=== PATIENT | male | born 2000 | race African-American/Black ===

== ENCOUNTER 2021-07-27 00:05 | Observation (INO) ==
[2021-07-27] MEDS ORDERED: VANCOMYCIN INJ 1,000 MG in SODIUM CHLORIDE 0.9% 250 ML IV STA (05:12)
[2021-07-27 05:58] LABS: Basophils # 0.1 10*3/uL (0.0-0.2); Basophils % 0.6 % (0.0-0.8); Eosinophils # 0.1 10*3/uL (0.0-0.87); Eosinophils % 0.3 % (0.00-10.9); Hematocrit 43.6 VOL% (42.0-52.0); Hemoglobin 15.5 GM/DL (14.0-18.0); Immature Granulocytes % 0.9 %; Immature Granulocytes Absolute 0.19 #; Lymphocytes # 1.1 10*3/uL (1.4-4.0); Lymphocytes % 5.3 % (21.2-54.2); Mean Corpuscular HGB Conc 35.6 GM/DL (32-36); Mean Corpuscular Volume 85.7 FL (87-102); Mean Platelet Volume 9.2 FL (9.6-12.0); Monocytes # 2.3 10*3/uL (0.11-0.8); Monocytes % 10.8 % (1.7-12.7); Neutrophils % 82.1 % (38.7-73.9); Platelet Count 449 T/CUMM (130-400); Red Blood Count 5.09 MC/CUMM (3.8-5.5); Red Cell Distribution Width 13.2 % (9.3-17.3)
[2021-07-27] MEDS ORDERED: ONDANSETRON 4 MG/2 ML VIAL IV PRN ×2 (06:04→11:09)
[2021-07-27 06:20] LABS: Band Neutrophils 1 % (0-10); Lymphocytes 4 % (20-55); Platelet Estimate Adequate; Total Cells Counted 100
[2021-07-27 06:27] LABS: Albumin 3.4 G/DL (3.4-5.0); Bilirubin,Total 1.2 MG/DL (0.20-1.00); Calcium 10.1 MG/DL (8.5-10.1); Osmolality,Calculated 267.2 MOS/KG (273-304); Potassium 3.1 MMOL/L (3.5-5.1); Total Protein 8.8 G/DL (6.4-8.2)
[2021-07-27] MEDS ORDERED: HYDROmorphone 1 MG/1 ML SYRINGE ONE (09:21)
[2021-07-27] MEDS: HYDROmorphone 1 MG/1 ML SYRINGE IV PRN ×3 (09:28→12:40)
[2021-07-27] MEDS: DEXTROSE 5% NACL 0.45% 1,000 ML IV SCH ×2 (09:50→13:49)
[2021-07-27] MEDS: PIPERACILLIN/TAZOBACTAM 3,375 MG in SODIUM CHLORIDE 0.9% 100 ML IV SCH ×2 (09:50→15:58)
[2021-07-27] MEDS: PANTOPRAZOLE 40 MG VIAL IV SCH (09:50)
[2021-07-27] MEDS ORDERED: MIDAZOLAM 2 MG/2 ML VIAL ONE (10:54)
[2021-07-27] MEDS ORDERED: fentaNYL 100 MCG/2 ML VIAL ONE ×2 (10:54→11:37)
[2021-07-27] MEDS ORDERED: propofoL 200 MG/20 ML VIAL IV ONE (10:54)
[2021-07-27] MEDS ORDERED: LIDOCAINE 2% 5 ML VIAL ONE (10:54)
[2021-07-27] MEDS ORDERED: LIDOCAINE 1%/EPI INJ 20 ML VIAL ONE (11:01)
[2021-07-27] MEDS ORDERED: BUPIVACAINE MPF 0.25% 10 ML VIAL ONE (11:01)
[2021-07-27] MEDS ORDERED: HYDROmorphone 1 MG/1 ML SYRINGE IV PRN (11:09)
[2021-07-27] MEDS ORDERED: PROMETHAZINE INJ 25 MG in SODIUM CHLORIDE 0.9% 50 ML IV PRN (11:09)
[2021-07-27] MEDS ORDERED: diphenhydrAMINE 50 MG/1 ML VIAL IV PRN (11:09)
[2021-07-27] MEDS ORDERED: SEVOFLURANE 1 UNIT/15 MINUTE INH ONE (11:48)
[2021-07-27] MEDS ORDERED: ONDANSETRON 4 MG/2 ML VIAL ONE (11:48)
[2021-07-27] MEDS: MEPERIDINE 25 MG/1 ML VIAL IV PRN ×2 (12:15→12:25)
[2021-07-27] MEDS ORDERED: PROMETHAZINE 25 MG/1 ML VIAL ONE (12:18)
[2021-07-27] MEDS ORDERED: VANCOMYCIN INJ 2,000 MG in SODIUM CHLORIDE 0.9% 500 ML IV SCH (14:00)
[2021-07-28] MEDS: PIPERACILLIN/TAZOBACTAM 3,375 MG in SODIUM CHLORIDE 0.9% 100 ML IV SCH ×2 (00:01→08:51)
[2021-07-28] MEDS: DEXTROSE 5% NACL 0.45% 1,000 ML IV SCH ×2 (05:56→08:51)
[2021-07-28] MEDS: PANTOPRAZOLE 40 MG VIAL IV SCH (08:51)
[2021-07-28] MEDS: HYDROmorphone 1 MG/1 ML SYRINGE IV PRN (09:57)
[2021-07-28] MEDS: SULFAMETHOX/TRIMETHOPRIM 800-160 MG TABLET PO SCH ×2 (11:16→20:43)
[2021-07-29] MEDS: SULFAMETHOX/TRIMETHOPRIM 800-160 MG TABLET PO SCH (10:41)
[2021-07-29] MEDS: PANTOPRAZOLE 40 MG VIAL IV SCH (10:41)
[2021-07-29 11:27] VITALS: BP 119/68
== END 2021-07-29 14:47 | disposition home or self-care (01) ==
LOC: N.EDINP 00:05 → N.ED 00:05 → N.3E 11:20
PROVIDERS: ADMIT Surgery; ATTEND Surgery